=== PATIENT | male | born 1955 | race Two or more races ===

== ENCOUNTER → 2019-04-26 | Outpatient (CLI) | payer BC, OTHER ==
[~2019-04-26] MED LIST: HYOSCYAMINE; NAPROSYN; zyrtec
--- NOTE | 2019-04-26 15:43 | Diagnostic Imaging Report ---
EXAM: Focused Soft Tissue Ultrasound Evaluation of left shoulder INDICATION: ^BENIGN LIPAMATOUS NEOPLASM OF OTHER SITES COMPARISON: None TECHNIQUE: Hurd scale, color Doppler images of the subcutaneous soft tissues of the left shoulder were obtained. FINDINGS: There is a more encapsulated area of subcutaneous fat without associated internal vascularity, most likely representing lipoma. IMPRESSION: More encapsulated area of subcutaneous fat without associated internal vascularity, compatible with lipoma. Signed by: Philipp Begum MD on 04/26/2019 3:40 PM
== END ==
LOC: US 11:12
PROVIDERS: ATTEND Family Medicine
DX: D17.79 Benign lipomatous neoplasm of other sites (principal)
CPT/HCPCS: 76882